=== PATIENT | female | born 1930 | race Two or more races ===

== ENCOUNTER 2019-01-17 15:13 | Emergency (ER) | payer MEDICARE, OTHER ==
[~2019-01-17] VITALS: Ht 172.7 cm; Wt 63.5 kg
[2019-01-17] MEDS ORDERED: cloNIDine HCL 0.1 MG TAB ONE (15:42)
[2019-01-17] MEDS ORDERED: cloNIDine HCL 0.1 MG TAB PO ONE (15:45)
[2019-01-17 18:01] VITALS: BP 143/62
== END 2019-01-17 18:11 | disposition home or self-care (01) ==
LOC: ER 15:17
DX: I10 Essential (primary) hypertension (principal)
CPT/HCPCS: 93005